=== PATIENT | male | born 1995 | race African-American/Black ===

== ENCOUNTER 2016-09-03 15:30 | Emergency (ER) | payer OTHER ==
[~2016-09-03] VITALS: Ht 180.3 cm; Wt 86.6 kg
[~2016-09-03 15:30] MED LIST: AUGMENTIN875 MG PO; FLEXERIL10 MG PO; NAPROSYN500 MG PO
[2016-09-03] MEDS ORDERED: AMLODIPINE BESYL5 MG PO (15:48)
[2016-09-03 16:35] LABS: HEMATOCRIT 48.1 % (38.0-50.0); MCHC 32.4 G/DL (30.0-36.0); MCV 86.2 FL (86-99); PLATELET COUNT 217 K/uL (156-360); RBC DIS.WIDTH-SD 40.2 % (39-53); RED BLOOD COUNT 5.58 M/uL (4.00-5.50); WHITE BLOOD COUNT 5.8 K/uL (4.1-10.2)
[2016-09-03 16:44] LABS: CHLORIDE 108 mEq/L (99-109); POTASSIUM 4.1 mEq/L (3.7-5.4); SODIUM 143 mEq/L (136-147)
[2016-09-03 16:45] LABS: GLUCOSE 77 mg/dL (70-99)
[2016-09-03 16:47] LABS: ANION GAP 11 MEQ/L (2-14)
[2016-09-03 16:49] LABS: GFR ESTIMATE (CALCULATED) > 59 mL/min/
[2016-09-03 16:50] LABS: UREA NITROGEN (BUN) 15 mg/dL (9-23)
[2016-09-03] MEDS ORDERED: ANTIVERT12.5 MG PO (17:33)
[2016-09-03 17:44] VITALS: BP 149/82
== END 2016-09-03 17:47 | disposition home or self-care (01) ==
LOC: EME 15:30
PROVIDERS: Physician Assistant Medical
DX: R42 Dizziness and giddiness (principal); R06.00 Dyspnea, unspecified; I10 Essential (primary) hypertension; Z72.0 Tobacco use
CPT/HCPCS: 70450; 80048; 85027; 93005; 99281; 99283

== ENCOUNTER 2016-12-04 13:56 | Emergency (ER) | payer OTHER ==
[~2016-12-04] VITALS: Ht 180.3 cm; Wt 83.6 kg
[~2016-12-04 13:56] MED LIST changes: +AMLODIPINE BESYL5 MG PO; +ANTIVERT12.5 MG PO
[2016-12-04 15:54] LABS: HEMATOCRIT 45.8 % (38.0-50.0); MCH 28.3 PG (29.0-34.0); MCHC 33.2 G/DL (30.0-36.0); MCV 85.3 FL (86-99); MEAN PLAT.VOLUME 8.9 uM^3 (9.0-12.4); PLATELET COUNT 202 K/uL (156-360); RBC DIS.WIDTH-CV 12.6 % (11.8-14.6); RBC DIS.WIDTH-SD 39.1 % (39-53); RED BLOOD COUNT 5.37 M/uL (4.00-5.50)
[2016-12-04 16:02] LABS: CHLORIDE 103 mEq/L (99-109); POTASSIUM 4.2 mEq/L (3.7-5.4); SODIUM 139 mEq/L (136-147)
[2016-12-04 16:04] LABS: GLUCOSE 90 mg/dL (70-99)
[2016-12-04 16:06] LABS: ANION GAP 11 MEQ/L (2-14); TOTAL BILIRUBIN 0.5 mg/dL (0.0-1.0)
[2016-12-04 16:08] LABS: ALKALINE PHOSPHATASE 76 IU/L (3-129); GFR ESTIMATE (CALCULATED) > 59 mL/min/
[2016-12-04 16:09] LABS: UREA NITROGEN (BUN) 16 mg/dL (9-23)
[2016-12-04 16:52] VITALS: BP 152/89
== END 2016-12-04 16:54 | disposition home or self-care (01) ==
LOC: EME 13:56
PROVIDERS: Nurse Practitioner Family
DX: I10 Essential (primary) hypertension (principal); R51 Headache; F17.200 Nicotine dependence, unspecified, uncomplicated
CPT/HCPCS: 80053; 85027; 93005; 99281; 99283

== ENCOUNTER 2016-12-30 21:55 | Emergency (ER) | payer OTHER ==
[~2016-12-30] VITALS: Ht 180.3 cm; Wt 84.5 kg
[2016-12-30 23:02] LABS: HEMATOCRIT 41.9 % (38.0-50.0); MCH 28.9 PG (29.0-34.0); MCHC 33.9 G/DL (30.0-36.0); MCV 85.2 FL (86-99); MEAN PLAT.VOLUME 9.2 uM^3 (9.0-12.4); PLATELET COUNT 220 K/uL (156-360); RBC DIS.WIDTH-CV 12.6 % (11.8-14.6); RBC DIS.WIDTH-SD 38.8 % (39-53); RED BLOOD COUNT 4.92 M/uL (4.00-5.50); WHITE BLOOD COUNT 7.7 K/uL (4.1-10.2)
[2016-12-30 23:12] LABS: CHLORIDE 108 mEq/L (99-109); POTASSIUM 3.4 mEq/L (3.7-5.4); SODIUM 143 mEq/L (136-147)
[2016-12-30 23:13] LABS: MAGNESIUM 2.2 mg/dL (1.3-2.7)
[2016-12-30 23:14] LABS: GLUCOSE 83 mg/dL (70-99)
[2016-12-30 23:16] LABS: ANION GAP 12 MEQ/L (2-14)
[2016-12-30 23:18] LABS: GFR ESTIMATE (CALCULATED) > 59 mL/min/
[2016-12-30 23:19] LABS: UREA NITROGEN (BUN) 16 mg/dL (9-23)
[2016-12-30 23:22] LABS: TROP-I INTERPRETATION NEGATIVE; TROPONIN-I < 0.01 ng/mL (0.0-0.30)
[2016-12-30 23:31] LABS: D-DIMER ELISA < 150.00 ng/mLDDU (<230)
[2016-12-31 01:28] LABS: TROP-I INTERPRETATION NEGATIVE; TROPONIN-I < 0.01 ng/mL (0.0-0.30)
[2016-12-31 02:08] VITALS: BP 153/94
== END 2016-12-31 02:10 | disposition home or self-care (01) ==
LOC: EME 21:55
PROVIDERS: Emergency Medicine
DX: R07.9 Chest pain, unspecified (principal); I10 Essential (primary) hypertension; Z87.891 Personal history of nicotine dependence
CPT/HCPCS: 71020; 80048; 83735; 84100; 84484; 85027; 85379; 93005; 99281; 99285

== ENCOUNTER 2017-02-22 06:53 | Emergency (ER) | payer OTHER ==
[~2017-02-22] VITALS: Ht 180.3 cm; Wt 86.2 kg
[2017-02-22] MEDS ORDERED: METOPROLOL SUCC25 MG PO (07:09)
[2017-02-22 07:30] LABS: EOSINOPHIL COUNT 0.1 K/uL (0-0.3); HEMATOCRIT 44.2 % (38.0-50.0); IMMATURE GRANULOCYTE (%) 0.2 % (0.0-0.7); INSTRUMENT ABS NEUTROPHIL CT 2.2 K/uL; LYMPHOCYTE COUNT 2.2 K/uL (1.0-2.8); MCH 28.1 PG (29.0-34.0); MCHC 32.6 G/DL (30.0-36.0); MCV 86.2 FL (86-99); MEAN PLAT.VOLUME 9.2 uM^3 (9.0-12.4); MONOCYTE (%) 8.3 % (3-12); MONOCYTE COUNT 0.4 K/uL (0-0.8); NEUTROPHIL COUNT 2.2 K/uL (1.8-6.4); PLATELET COUNT 189 K/uL (156-360); RBC DIS.WIDTH-CV 12.8 % (11.8-14.6); RBC DIS.WIDTH-SD 40.2 % (39-53); RED BLOOD COUNT 5.13 M/uL (4.00-5.50); WHITE BLOOD COUNT 4.9 K/uL (4.1-10.2)
[2017-02-22 08:02] LABS: ANION GAP 6 MEQ/L (2-14); CHLORIDE 107 MEQ/L (99-109); GFR ESTIMATE (CALCULATED) > 59 mL/min/; GLUCOSE 87 mg/dL (70-99); POTASSIUM 4.4 MEQ/L (3.7-5.4); SAMPLE HEMOLYSIS CHECK 0; SAMPLE ICTERIC CHECK 0; SAMPLE LIPEMIA CHECK 0; SODIUM 141 MEQ/L (136-147); UREA NITROGEN (BUN) 9 mg/dL (9-23)
[2017-02-22] MEDS ORDERED: LISINOPRIL10 MG PO (08:58)
[2017-02-22 09:29] VITALS: BP 139/91
== END 2017-02-22 09:29 | disposition home or self-care (01) ==
LOC: EME 06:53
PROVIDERS: Emergency Medicine
DX: I10 Essential (primary) hypertension (principal); Z87.891 Personal history of nicotine dependence
CPT/HCPCS: 71010; 80048; 85025; 99281; 99284

== ENCOUNTER 2017-03-10 06:57 | Emergency (ER) | payer OTHER ==
[~2017-03-10] VITALS: Ht 180.3 cm; Wt 87.4 kg
[~2017-03-10 06:57] MED LIST changes: +LISINOPRIL10 MG PO; +METOPROLOL SUCC25 MG PO
[2017-03-10 07:48] LABS: EOSINOPHIL (%) 0.3 % (0-5); HEMATOCRIT 44.3 % (38.0-50.0); IMMATURE GRANULOCYTE (%) 0.2 % (0.0-0.7); INSTRUMENT ABS NEUTROPHIL CT 3.9 K/uL; MCH 28.4 PG (29.0-34.0); MCHC 32.7 G/DL (30.0-36.0); MCV 86.7 FL (86-99); MEAN PLAT.VOLUME 9.1 uM^3 (9.0-12.4); MONOCYTE (%) 6.7 % (3-12); MONOCYTE COUNT 0.4 K/uL (0-0.8); NEUTROPHIL (%) 60.7 % (45-76); NEUTROPHIL COUNT 3.9 K/uL (1.8-6.4); PLATELET COUNT 223 K/uL (156-360); RBC DIS.WIDTH-CV 12.1 % (11.8-14.6); RED BLOOD COUNT 5.11 M/uL (4.00-5.50); WHITE BLOOD COUNT 6.4 K/uL (4.1-10.2)
[2017-03-10 07:56] LABS: D-DIMER ELISA < 150.00 ng/mLDDU (<230)
[2017-03-10 08:05] LABS: CHLORIDE 108 mEq/L (99-109); POTASSIUM 4.1 mEq/L (3.7-5.4); SODIUM 140 mEq/L (136-147)
[2017-03-10 08:07] LABS: GLUCOSE 108 mg/dL (70-99)
[2017-03-10 08:08] LABS: ANION GAP 6 MEQ/L (2-14)
[2017-03-10 08:09] LABS: TROP-I INTERPRETATION NEGATIVE; TROPONIN-I 0.02 ng/mL (0.0-0.30)
[2017-03-10 08:10] LABS: GFR ESTIMATE (CALCULATED) > 59 mL/min/
[2017-03-10 08:11] LABS: UREA NITROGEN (BUN) 16 mg/dL (9-23)
[2017-03-10] MEDS ORDERED: MOTRIN800 MG PO (08:32)
[2017-03-10 08:52] VITALS: BP 142/84
== END 2017-03-10 08:53 | disposition home or self-care (01) ==
LOC: EME 06:57
PROVIDERS: Emergency Medicine
DX: R07.89 Other chest pain (principal); R51 Headache; I10 Essential (primary) hypertension; Z87.891 Personal history of nicotine dependence
CPT/HCPCS: 71020; 80048; 84484; 85025; 85379; 93005; 99281; 99283

== ENCOUNTER 2017-04-27 11:00 | Day surgery (SDC) | payer OTHER ==
[~2017-04-27] VITALS: Ht 180.3 cm; Wt 88.0 kg
[~2017-04-27 11:00] MED LIST changes: +LISINOPRIL20 MG PO; +MOTRIN800 MG PO
== END 2017-04-27 15:15 | disposition home or self-care (01) ==
LOC: CATH 11:00
PROC: 0JH630Z Insertion of Hemodynamic Monitoring Device into Chest Subcutaneous Tissue and Fascia, Percutaneous Approach (ICD-10-PCS; principal; 2017-04-27)
DX: R55 Syncope and collapse (principal); R07.89 Other chest pain; I10 Essential (primary) hypertension; Z87.891 Personal history of nicotine dependence; Z82.49 Family history of ischemic heart disease and other diseases of the circulatory system; Z83.49 Family history of other endocrine, nutritional and metabolic diseases
CPT/HCPCS: C1764; C1894; J0690; J2250; J3010